=== PATIENT | female | born 1950 | race Caucasian/White ===

== ENCOUNTER 2016-10-26 06:41 | Emergency (ER) | payer BC, OTHER ==
[~2016-10-26] VITALS: Ht 152.4 cm; Wt 58.9 kg
[2016-10-26 06:45] VITALS: TEMP 36.7; Ht 152.4 cm; Wt 58.9 kg
[2016-10-26] MEDS ORDERED: DiphenhydrAMINE HCL 50 MG/ML VIAL IV STA ×2 (07:00→07:09)
[2016-10-26] MEDS ORDERED: SODIUM CHLORIDE 0.9% 1000ML 1,000 ML IV STA (07:00)
[2016-10-26] MEDS ORDERED: PROCHLORPERAZINE 5 MG/ML 2 ML VIAL IV STA ×2 (07:00→07:04)
--- NOTE | 2016-10-26 07:14 | EMERGENCY ROOM VISIT NOTE ---
History First contact with patient: 06:51 Chief Complaint: HEADACHE Stated Complaint: SEVERE HEADACHE History of Present Illness The patient is a 66 year old female who presents to the Emergency Room via private vehicle with complaints of "severe headache". The patient states that beginning earlier in the week she had periodic headaches. She states that they were diffuse in nature. She states that she has been seen here in the past for headaches secondary to dehydration. She states at that time she had diffuse bodyaches, of which are not present this time. She states that this past the headaches increased in severity, and they'll have been constant rated as a 10/10 and described as sharp in nature. She does not want to eat solid foods, and has been consuming no shakes and other soft substances. There is associated sweats. She states if she lays on one side makes it worse. She is tried aspirin without relief. She has had associated nausea. She denies any fevers, chills, abdominal pain. She denies any chest pain or shortness of breath. She denies any history of meningitis, speech troubles, or weakness. There is no history of stroke. Review of Systems A complete 10-point Review of Systems was discussed with the patient, with pertinent positives and negatives listed in the History of Present Illness. All remaining Review of Systems questions can be considered negative unless otherwise specified. Past Medical/Surgical History Medical Problems: (1) No Known Active Medical Problems Family History Hypertension, Stroke Social History Smoking Status: Current Every Day Smoker Alcohol Use: none Drug Use: none Marital Status: single Housing Status: lives alone Occupation Status: employed Current/Historical Medications Scheduled Doxycycline (Monohydrate) (Doxycycline), 100 MG PO BID Physical Exam Vital Signs Date Time Temp Pulse Resp B/P (MAP) Pulse Ox O2 Delivery O2 Flow Rate FiO2 10/26/16 10:57 76 16 136/76 96 10/26/16 10:37 76 16 136/76 96 Room Air 10/26/16 09:21 63 18 140/73 95 Room Air 10/26/16 08:25 69 10/26/16 07:51 95 Room Air 10/26/16 07:51 71 19 131/66 95 Room Air 10/26/16 06:45 36.7 80 18 124/78 95 Room Air Physical Exam VITAL SIGNS - Vital signs and nursing notes were reviewed. Stable. Afebrile. GENERAL -66-year-old female appearing her stated age who is in no acute distress. Communicates well with provider and answers questions appropriately. HEAD - Normocephalic, Atraumatic. No Olvera's Sign or Raccoon's Eyes. No depressed skull fractures palpable. EYES - PERRL with EOMI bilaterally. Sclera anicteric. Palpebral conjunctiva pink and moist with no injection noted. EARS - No deformities of external structures noted on gross examination bilaterally. No pain elicited with palpation of the tragus bilaterally. External auditory canals without discharge or otorrhea. Tympanic membranes pearly pinzon without retraction or bulging. NOSE - Midline and without cyanosis. No epistaxis or purulent drainage noted. Septum midline without deviation or septal hematoma noted. MOUTH/OROPHARYNX - Without perioral cyanosis. Buccal mucosa pink and moist and without leukoplakia. Tongue midline with equal elevation of palate bilaterally. No tonsillar hypertrophy, erythema, or exudates noted. Poor dentition noted. NECK - Neck with FROM. Supple to palpation. No lymphadenopathy noted. No nuchal rigidity. Patient is able to fully flex and extend her neck. LUNGS - Chest wall symmetric without accessory muscle use, intercostals retractions, or central cyanosis. Normal vesicular breath sounds CTA B/L. No wheezes, rales, or rhonchi appreciated. CARDIAC - RRR with S1/S2. No murmur, rubs, or gallops appreciated. EXTREMITIES - No pretibial edema present. She is neurovascularly intact in her extremities. +5/5 strength noted in UE/LE bilaterally. NEUROLOGIC - Cranial nerves II through XII grossly intact. Sensory intact to light touch throughout. PSYCH - A&Ox3 and cooperates fully with examiner. Pt is very pleasant and interacts well with examiner. Medical Decision & Procedures ER Provider Diagnostic Interpretation: HEAD WITHOUT CONTRAST (CT) CLINICAL HISTORY: 66 years-old Female with Worst headache of life. Symptoms are acute in nature. TECHNIQUE: Multiple axial CT images of the head were obtained without contrast. A dose lowering technique was utilized adhering to the principles of ALARA. CT DOSE: 844.62 mGy.cm COMPARISON: CT head 12/21/2014. FINDINGS: The patient was moving during the exam and a portion of the study was repeated. No acute intracranial hemorrhage, midline shift, mass, large territorial ischemia or abnormal extra-axial collection. There is mild to moderate cerebral and cerebellar atrophy. Ill-defined areas of low-attenuation are present within the periventricular white matter suggesting minimal chronic microvascular ischemic changes. Low-attenuation is also seen within the left posterior limb internal capsule suggesting white matter disease. The calvarium is intact. The right mastoid air cells are nearly completely opacified. There is a small left mastoid effusion. Fluid is present within the right middle ear cavity. Paranasal sinuses are generally clear. Right owen bullosa is noted. Soft tissues are unremarkable. IMPRESSION: 1. Limited study secondary to patient motion. Within the limitations of the study, no acute intracranial abnormality is identified. 2. Atrophy with minimal chronic microvascular ischemic changes. 3. Large right and trace left mastoid effusions with fluid also noted within the right middle ear cavity. The above report was generated using voice recognition software. It may contain grammatical, syntax or spelling errors. Electronically signed by: Sanya Maya M.D. 10/26/2016 8:02 AM Dictated Date/Time: 10/26/2016 7:58 AM Laboratory Results 10/26/16 07:20 Red Blood Count 4.27, Mean Corpuscular Volume 97.9, Mean Corpuscular Hemoglobin 34.2, Mean Corpuscular Hemoglobin Concent 34.9, Mean Platelet Volume 11.1, Neutrophils (%) (Auto) 62.3, Lymphocytes (%) (Auto) 29.5, Monocytes (%) (Auto) 7.1, Eosinophils (%) (Auto) 0.2, Basophils (%) (Auto) 0.2, Neutrophils # (Auto) 2.72, Lymphocytes # (Auto) 1.29, Monocytes # (Auto) 0.31, Eosinophils # (Auto) 0.01, Basophils # (Auto) 0.01 10/26/16 07:20 Test 10/26/16 07:15 10/26/16 07:20 Urine Color YELLOW Urine Appearance CLOUDY (CLEAR) Urine pH 5.0 (4.5-7.5) Urine Specific Nabb 1.029 (1.000-1.030) Urine Protein TRACE (NEG) Urine Glucose (UA) NEG (NEG) Urine Ketones 1+ (NEG) Urine Occult Blood 2+ (NEG) Urine Nitrite NEG (NEG) Urine Bilirubin NEG (NEG) Urine Urobilinogen NEG (NEG) Urine Leukocyte Esterase NEG (NEG) Urine WBC (Auto) 1-5 /hpf (0-5) Urine RBC (Auto) 5-10 /hpf (0-4) Urine Hyaline Casts (Auto) 1-5 /lpf (0-5) Urine Epithelial Cells (Auto) >30 /lpf (0-5) Urine Bacteria (Auto) NEG (NEG) White Blood Count 4.37 K/uL (4.8-10.8) Red Blood Count 4.27 M/uL (4.2-5.4) Hemoglobin 14.6 g/dL (12.0-16.0) Hematocrit 41.8 % (37-47) Mean Corpuscular Volume 97.9 fL (80-100) Mean Corpuscular Hemoglobin 34.2 pg (25-34) Mean Corpuscular Hemoglobin Concent 34.9 g/dl (32-36) Platelet Count 178 K/uL (130-400) Mean Platelet Volume 11.1 fL (7.4-10.4) Neutrophils (%) (Auto) 62.3 % Lymphocytes (%) (Auto) 29.5 % Monocytes (%) (Auto) 7.1 % Eosinophils (%) (Auto) 0.2 % Basophils (%) (Auto) 0.2 % Neutrophils # (Auto) 2.72 K/uL (1.4-6.5) Lymphocytes # (Auto) 1.29 K/uL (1.2-3.4) Monocytes # (Auto) 0.31 K/uL (0.11-0.59) Eosinophils # (Auto) 0.01 K/uL (0-0.5) Basophils # (Auto) 0.01 K/uL (0-0.2) RDW Standard Deviation 50.7 fL (36.4-46.3) RDW Coefficient of Variation 14.3 % (11.5-14.5) Immature Granulocyte % (Auto) 0.7 % Immature Granulocyte # (Auto) 0.03 K/uL (0.00-0.02) Prothrombin Time 10.9 SECONDS (9.0-12.0) Prothromb Time International Ratio 1.0 (0.9-1.1) Activated Partial Thromboplast Time 26.0 SECONDS (21.0-31.0) Partial Thromboplastin Ratio 1.0 Anion Gap 4.0 mmol/L (3-11) Est Creatinine Clear Calc Drug Dose 54.9 ml/min Estimated GFR () 87.0 Estimated GFR (Non- 75.1 BUN/Creatinine Ratio 16.6 (10-20) Calcium Level 8.5 mg/dl (8.5-10.1) Magnesium Level 2.1 mg/dl (1.8-2.4) Total Bilirubin 0.3 mg/dl (0.2-1) Aspartate Amino Transf (AST/SGOT) 27 U/L (15-37) Alanine Aminotransferase (ALT/SGPT) 16 U/L (12-78) Alkaline Phosphatase 66 U/L (45-117) Total Protein 7.1 gm/dl (6.4-8.2) Albumin 3.8 gm/dl (3.4-5.0) Globulin 3.3 gm/dl (2.5-4.0) Albumin/Globulin Ratio 1.2 (0.9-2) Thyroid Stimulating Hormone (TSH) 0.921 uIu/ml (0.300-4.500) Lyme Disease IgG Antibody POS (NEG) Medications Administered Medications (Trade) Dose Ordered Sig/Von Route Start Time Stop Time Status Last Admin Dose Admin Sodium Chloride 1,000 ml @ 999 mls/hr Q1H1M STAT IV 10/26/16 07:00 10/26/16 08:00 DC 10/26/16 07:28 999 MLS/HR Prochlorperazine Edisylate (Compazine Inj) 5 mg NOW STAT IV 10/26/16 07:04 10/26/16 07:05 DC 10/26/16 07:29 5 MG Diphenhydramine HCl (Benadryl Inj) 25 mg NOW STAT IV 10/26/16 07:09 10/26/16 07:10 DC 10/26/16 07:28 25 MG Ketorolac Tromethamine (Toradol Inj) 15 mg NOW STAT IV 10/26/16 07:57 10/26/16 07:58 DC 10/26/16 08:12 15 MG Medical Decision Patient was seen and evaluated as above. Previous visits were extensively reviewed. She presents to us today with a diffuse headache described as severe. She states she's been seen here in the past for such and believes it is secondary to dehydration, but notes this one is different. She denies any defined history of migraines. She has tried aspirin without relief. She was seen here a little over a year ago and treated with Toradol, Benadryl Compazine as well as fluids and narcotics. At this time I will begin with Benadryl Compazine and hold Toradol until her creatinine is identified. There is no emergent deficits appreciated on examination. No evidence of CVA on examination. The decision was made to obtain a CT scan of the patient's head secondary to the nature of her headache at this time, being different than her previous and severe. She was then reevaluated after return from CAT scan and medicated with fluids, Benadryl Compazine. The doses from Benadryl Compazine were decreased to 25mg and 5mg respectively. She then rated her pain as a 5-6/ 10. She was resting comfortably. CT scan results as above. Read by myself and the radiologist as well as the attending physician to reveal no acute hemorrhage, infarct. She was given Toradol for pain. She appears to be stable for discharge. No evidence of acute process. She was educated upon worrisome symptoms which to return, had questions to discharge, and was discharged home in good condition. Positive Lyme IgG and IgM. The bands are pending. At this time I will treat with a 7 day course of which she can refill 2. This is in case the cost is very high as the patient expressed concern. Ideally she'll be treated for 21 days, however if the bands, back and conclusive were negative then it can be stopped. In the evaluation and treatment of this patient, the following differential diagnoses were considered: Concussion, Contrecoup Injury, Brain Tumor, Depression, Encephalitis, Hypothyroidism, Meningitis, CVA, TIA, Migraine, Cluster Headache, Intracranial Abnormality, Intracranial Hemorrhage, Subdural Hematoma, Subarachnoid Hemorrhage, Hydrocephalus. [place] Drug Monitoring Program Search Results: patient reviewed within database, no issues identified Impression Primary Impression: Headache Additional Impression: Positive Lyme disease serology Departure Information Dispostion Home / Self-Care Condition GOOD Prescriptions Doxycycline (Monohydrate) (Doxycycline) 100 Mg Cap 100 MG PO BID for 7 Days, #14 TABS 2 Refills Prov: Marvin Resendiz PA-C 10/26/16 Referrals Roland Waller M.D. (PCP) Forms HOME CARE DOCUMENTATION FORM, IMPORTANT VISIT INFORMATION Patient Instructions My [facility] Additional Instructions You have been treated in the Emergency Department for a Headache. You have received pain medicine in the emergency department which impairs your ability to operate a vehicle. It is illegal for you to drive after receiving these medicines. You have been prescribed Doxycycline to be taken as prescribed. This is an antibiotic. All antibiotics have the potential to cause diarrhea. Stop this medication and contact a medical provider if you were to develop any significant adverse side effects including: wheezing, shortness of breath, passing out, vomiting, or a diffuse rash. Always take antibiotics as directed and COMPLETE the ENTIRE course regardless of the improvement of your symptoms. Protect yourself with sunscreen while on this antibiotic as it increases your skin's sensitivity to the light and cause bad sunburns. In addition, you should be sure to take this pill after eating. Make sure the pill is completely swallowed as this medication can cause irritation to the lining of the esophagus. Do NOT drink milk or eat anything with large amounts of Calcium in them 1 hour prior to taking this medication as this will decrease the effectiveness of the medication. THIS IS FOR THE POSITIVE LYME TESTING. If you do not hear from us please refill the medications so that it is a total of 21 days. Please call your family doctor to schedule follow-up. For pain control, you can use the following [id number] medicines: - Regular strength (325mg/tab) Tylenol (acetaminophen) 2 tabs every 4-6 hours as needed. Do not exceed 12 tablets in a 24 hour period. Avoid taking more than 3 grams (3000 mg) of Tylenol per day. This includes any other sources of acetaminophen you may take on a regular basis. - Regular strength (200 mg/tab) Advil (ibuprofen) 1-2 tabs every 4-6 hours as needed. Do not exceed a dose of 3200 mg per day. You should relax in a quiet, dark place for the rest of the day. Avoid any possible triggers including: cigarette smoke, caffeine, nicotine, chocolate, wine, beer, loud noises or music, or bright lights. You should schedule a follow-up appointment in 2-3 days with your Primary Care Provider or established Neurologist for further evaluation and treatment of your Headache. Return to the Emergency Department if your current symptoms worsen despite treatment course outlined above, or if you develop any of the following symptoms : intractable pain despite aforementioned treatment course, visual disturbances , loss of vision, unilateral weakness or facial drooping, slurring of speech, loss of coordination, or loss of consciousness. Please return to the emergency department with any new/concerning symptoms. Problem Qualifiers
[2016-10-26 07:34] LABS: BASO % 0.2 %; BASO ABS # 0.01 K/uL (0-0.2); COMPLETE YES; EOS % 0.2 %; HEMATOCRIT 41.8 % (37-47); IG% 0.7 %; LYMPH % 29.5 %; LYMPH ABS # 1.29 K/uL (1.2-3.4); MEAN CELL VOLUME 97.9 fL (80-100); MEAN CORPUSCULAR HEMOGLOBIN 34.2 pg (25-34); MEAN CORPUSCULAR HGB CONC 34.9 g/dl (32-36); MEAN PLATELET VOLUME 11.1 fL (7.4-10.4); MONO % 7.1 %; NEUT % 62.3 %; PLATELET COUNT 178 K/uL (130-400); RED BLOOD COUNT 4.27 M/uL (4.2-5.4); WHITE BLOOD COUNT 4.37 K/uL (4.8-10.8)
[2016-10-26 07:38] LABS: URINE APPEARANCE CLOUDY (CLEAR); URINE BILIRUBIN NEG (NEG); URINE COLOR YELLOW; URINE EPITHELIAL CELL AUTO >30 /lpf (0-5); URINE NITRITE NEG (NEG); URINE SPECIFIC GRAVITY 1.029 (1.000-1.030); UROBILINOGEN NEG (NEG); ZZUR CULT IF INDIC CLEAN CATCH NO
[2016-10-26 07:39] LABS: MANUAL MICROSCOPIC REQUIRED? NO; REVIEW REQ? NO
[2016-10-26 07:44] LABS: PROTHROMBIN TIME (PATIENT) 10.9 SECONDS (9.0-12.0)
[2016-10-26 07:46] LABS: BUN/CREATININE RATIO 16.6 (10-20); CALCIUM 8.5 mg/dl (8.5-10.1); CREATININE 0.82 mg/dl (0.60-1.20); MAGNESIUM 2.1 mg/dl (1.8-2.4); POTASSIUM 3.5 mmol/L (3.5-5.1)
[2016-10-26 07:51] VITALS: O2SAT 95
[2016-10-26 07:57] LABS: ALB/GLOB RATIO 1.2 (0.9-2); THYROID STIMULATING HORMONE 0.921 uIu/ml (0.300-4.500)
[2016-10-26] MEDS ORDERED: KETOROLAC TROMETHAMINE 15 MG/ML VIAL IV STA (07:57)
--- NOTE | 2016-10-26 08:03 | DIAGNOSTIC IMAGING REPORT ---
HEAD WITHOUT CONTRAST (CT) CLINICAL HISTORY: 66 years-old Female with Worst headache of life. Symptoms are acute in nature. TECHNIQUE: Multiple axial CT images of the head were obtained without contrast. A dose lowering technique was utilized adhering to the principles of ALARA. CT DOSE: 844.62 mGy.cm COMPARISON: CT head 12/21/2014. FINDINGS: The patient was moving during the exam and a portion of the study was repeated. No acute intracranial hemorrhage, midline shift, mass, large territorial ischemia or abnormal extra-axial collection. There is mild to moderate cerebral and cerebellar atrophy. Ill-defined areas of low-attenuation are present within the periventricular white matter suggesting minimal chronic microvascular ischemic changes. Low-attenuation is also seen within the left posterior limb internal capsule suggesting white matter disease. The calvarium is intact. The right mastoid air cells are nearly completely opacified. There is a small left mastoid effusion. Fluid is present within the right middle ear cavity. Paranasal sinuses are generally clear. Right owen bullosa is noted. Soft tissues are unremarkable. IMPRESSION: 1. Limited study secondary to patient motion. Within the limitations of the study, no acute intracranial abnormality is identified. 2. Atrophy with minimal chronic microvascular ischemic changes. 3. Large right and trace left mastoid effusions with fluid also noted within the right middle ear cavity. The above report was generated using voice recognition software. It may contain grammatical, syntax or spelling errors. Electronically signed by: Sanya Maya M.D. 10/26/2016 8:02 AM Dictated Date/Time: 10/26/2016 7:58 AM
--- NOTE | 2016-10-26 08:18 | EMERGENCY ROOM VISIT NOTE ---
ED Visit Note First contact with patient: 06:51 66-year-old female with headache was fully evaluated by Marvin Resendiz PA-C. Please see his note. I also independently evaluated the patient. Multiple labs and imaging were performed. The patient was felt stable to return home.
[2016-10-26 08:42] LABS: LYME DISEASE AB IGG POS (NEG); LYME DISEASE AB IGM POS (NEG)
[2016-10-26] MEDS ORDERED: DOXY-300 PO (10:48)
[2016-10-26 10:57] VITALS: BP 136/76; PULSE 76; O2SAT 96
[2016-10-29 20:01] LABS: 18KDIGG BAND REACTIVE (NONREACTIVE); 23KDIGG BAND REACTIVE (NONREACTIVE); 23KDIGM BAND REACTIVE (NONREACTIVE); 28KDIGG BAND REACTIVE (NONREACTIVE); 30KDIGG BAND REACTIVE (NONREACTIVE); 39KDIGG BAND REACTIVE (NONREACTIVE); 39KDIGM BAND NONREACTIVE (NONREACTIVE); 41KDIGG BAND REACTIVE (NONREACTIVE); 41KDIGM BAND REACTIVE (NONREACTIVE); 45KDIGG BAND REACTIVE (NONREACTIVE); 58KDIGG BAND REACTIVE (NONREACTIVE); 66KDIGG BAND REACTIVE (NONREACTIVE); 93KDIGG BAND REACTIVE (NONREACTIVE)
--- NOTE | 2016-11-02 18:58 | Pharmacy Progress Note ---
ED Pharmacist Culture FollowUp Date of Service: Nov 02, 2016. Patient was sent home with a prescription for doxycycline, which should cover the Lyme identified in patient's serology. Called patient and informed of need to continue full 21 day course. Patient acknowledged understanding.
== END 2016-10-26 10:57 | disposition home or self-care (01) ==
LOC: C.EDB 06:42 → C.EDA 10:57
DX: R51 Headache (principal); A69.20 Lyme disease, unspecified; Z82.49 Family history of ischemic heart disease and other diseases of the circulatory system; Z82.3 Family history of stroke; F17.210 Nicotine dependence, cigarettes, uncomplicated

== ENCOUNTER 2017-03-09 09:26 | Emergency (ER) | payer OTHER ==
[~2017-03-09] VITALS: Ht 152.4 cm; Wt 59.1 kg
[~2017-03-09 09:26] MED LIST: DOXY-300 PO
[2017-03-09 09:29] VITALS: Ht 152.4 cm; Wt 59.1 kg
[2017-03-09] MEDS ORDERED: ONDANSETRON INJ 2 MG/ML 2 ML VIAL IV STA (09:42)
[2017-03-09] MEDS ORDERED: DEXAMETHASONE INJ 10 MG in SYRINGE 0 ML IV STA (09:42)
[2017-03-09] MEDS ORDERED: MoRPHine SULFATE 4 MG/ML 1 ML CARP\\VIAL IV STA (09:42)
[2017-03-09] MEDS ORDERED: KETOROLAC TROMETHAMINE 30 MG/ML VIAL IV STA (09:42)
[2017-03-09] MEDS ORDERED: ACETAMINOPHEN 500 MG TAB PO STA (09:42)
[2017-03-09] MEDS ORDERED: DEXAMETHASONE **PF** INJ 10 MG/ML VIAL ONE (10:04)
--- NOTE | 2017-03-09 10:04 | EMERGENCY ROOM VISIT NOTE ---
History Report prepared by Jose: Shreyas Gresham Under the Supervision of: Dr. Yair Earl M.D. First contact with patient: 09:33 Chief Complaint: BACK PAIN Stated Complaint: BACK PAIN History of Present Illness The patient is a 66 year old white woman without any past medical history who presents to the ED with a cc of sharp ower back pain beginning four months ago. Negative falls, trauma, fevers, weakness, numbness, unexplained weight loss, abnormal urinary symptoms, or bowel/bladder incontinence. A couple months ago, the patient pulled a muscle in her back while picking up a six pack. After using Aspirin and heat intermittently, the pain improved until recently. She notes yesterday her pain was radiating up her spine, but it is not today. Her pain worsens with movement. She does not drink alcohol or use illicit drugs. She took an Aspirin this morning. She smokes cigarettes regularly. Source of History: patient Onset: four months ago Position: back (lower) Symptom Intensity: moderate Quality: sharp Timing: worsening Modifying Factors (Worsening): movement Associated Symptoms: No fevers, No weakness, No numbness Note: She denies any falls or trauma. Review of Systems See HPI for pertinent positives and negatives. A total of ten systems were reviewed and were otherwise negative. Past Medical & Surgical Medical Problems: (1) No Known Active Medical Problems Family History No pertinent family history Social History Smoking Status: Current Every Day Smoker Alcohol Use: none Drug Use: none Marital Status: single Housing Status: lives alone Occupation Status: employed Current/Historical Medications Scheduled Methylprednisolone (Medrol Dosepak), 0 PO DAILY Tramadol Hcl (Ultram), 50 MG PO Q8H Allergies Coded Allergies: No Known Allergies (Verified , 03/09/17) Physical Exam Vital Signs Date Time Temp Pulse Resp B/P (MAP) Pulse Ox O2 Delivery O2 Flow Rate FiO2 03/09/17 12:11 36.7 81 19 138/85 96 03/09/17 11:00 36.4 103 22 132/88 99 Room Air 03/09/17 09:45 36.4 103 22 136/87 99 Room Air 03/09/17 09:29 36.4 104 22 132/87 99 Room Air Physical Exam GENERAL: Awake, alert, appears older than her stated age, NAD HENT: Normocephalic, atraumatic. EYES: Normal conjunctiva. Sclera non-icteric. NECK: Supple. No nuchal rigidity. FROM. RESPIRATORY: CTAB, no rhonchi, wheezing, crackles CARDIAC: RRR, no MRG ABDOMEN: Soft, NTND, BS+ MSK: No chest wall TTP, no LE edema. Left perispinal TTP, no midline TTP, no step offs, no skin changes to the lower back. Negative straight leg raise b/l. No pain with external rotation. No saddle anesthesia. NEURO: GCS 15, CN 2-12 intact, moves all 4s on command. 5/5 strength b/l with straight leg raise. No sensory deficits. SKIN: No rash or jaundice noted. Medical Decision & Procedures ER Provider Diagnostic Interpretation: Radiology results as stated below per my review and radiologist interpretation: LUMBAR SPINE 5 VIEWS CLINICAL HISTORY: Back pain. FINDINGS: Five views of the lumbar spine are obtained. No prior studies are available for comparison at the time of dictation. The skeletal structures are osteopenic. There is a mild and age-indeterminant superior endplate compression deformity of L1. Vertebral body height is otherwise maintained throughout the lumbar spine. Minimal retrolisthesis is seen at L2-L3. Alignment is otherwise preserved. The transverse and spinous processes are intact as visualized. There is no evidence of spondylolysis. Small anterior osteophytes are seen throughout. Moderate facet arthropathy is noted in the lower lumbar region. There is partial sacralization of L5. Moderate disc space narrowing is seen at L2-L3 with associated endplate sclerosis. Mild disc space narrowing is seen at the remaining lumbar levels. The visualized bony pelvis appears intact. Moderate colonic fecal retention is observed. No bowel obstruction is identified. There is atherosclerotic calcification of the abdominal aorta. Small phleboliths are seen in the pelvis. IMPRESSION: 1. There is a mild and age-indeterminant superior endplate compression deformity of L1. Correlate for point tenderness at this level. 2. No additional acute bony abnormality is suspected. 3. Osteopenia and spondylotic change as above. 4. Moderate constipation. Dictated: 03/09/2017 11:01 AM Transcribed: 03/09/2017 11:27 AM [email or web address] Electronically signed by: Isidro Hassan M.D. 03/09/2017 11:35 AM Dictated Date/Time: 03/09/2017 11:01 AM Medications Administered Medications (Trade) Dose Ordered Sig/Ovn Route Start Time Stop Time Status Last Admin Dose Admin Ondansetron HCl (Zofran Inj) 4 mg NOW STAT IV 03/09/17 09:42 03/09/17 09:45 DC 03/09/17 09:59 4 MG Acetaminophen (Tylenol Tab) 1,000 mg NOW STAT PO 03/09/17 09:42 03/09/17 09:45 DC 03/09/17 10:00 1,000 MG Ketorolac Tromethamine (Toradol Inj) 30 mg NOW STAT IV 03/09/17 09:42 03/09/17 09:45 DC 03/09/17 09:59 30 MG Morphine Sulfate (MoRPHine SULFATE INJ) 4 mg NOW STAT IV 03/09/17 09:42 03/09/17 09:45 DC 03/09/17 09:59 4 MG Dexamethasone Sodium Phosphate (Dexamethasone Inj Pf) 10 mg STK-MED ONCE .ROUTE 03/09/17 10:04 03/09/17 10:05 DC 03/09/17 10:06 10 MG ED Course 0933: The patient was evaluated in room B3. A complete history and physical exam was performed. 1205: I reevaluated the patient. Discussed results and discharge instructions: She verbalized understanding and agreement. The patient is ready for discharge. Medical Decision The patient is a 66 year old white woman without any past medical history who presents to the ED with a cc of lower back pain beginning four months ago. Negative falls, trauma, fevers, weakness, numbness, unexplained weight loss, abnormal urinary symptoms, or bowel/bladder incontinence. Differential diagnosis: Etiologies such as musculoskeletal, disc herniation, fracture, aortic disease, metastatic disease, cord compression, discitis, infection, renal colic, gastrointestinal, acute exacerbation of chronic back pain, sciatica, cauda equina, as well as others were entertained. Patient was seen and evaluated the bedside. Patient has had some chronic back pain which she believed was precipitated from overreaching approximately 4 months prior. Patient denies any bowel or bladder incontinence or retention or saddle anesthesia. Patient otherwise is fairly well-appearing. Patient has no neurologic deficits. Patient has no high risk red flag signs such as fever, chills, IV drug abuse, or weight loss. Patient was informed of the findings and told to continue pain medication as needed and to follow-up with her PCP for further management which may include light exercising, PT, or steroid injections. Patient was also counseled on smoking cessation. Patient was deemed suitable for admission follow-up and treatment. Patient was given strict follow-up, discharge, and return precautions. All questions were answered. Patient was deemed suitable for outpatient follow-up at this time. Patient agreed with the plan of care and was safely discharged home. Medication Reconcilliation Current Medication List: was personally reviewed by me Blood Pressure Screening Patient's blood pressure: Normal blood pressure Blood pressure disposition: Did not require urgent referral Impression Primary Impression: Compression fracture of L1 lumbar vertebra Additional Impressions: Back pain Encounter for smoking cessation counseling Scribe Attestation The scribe's documentation has been prepared under my direction and personally reviewed by me in its entirety. I confirm that the note above accurately reflects all work, treatment, procedures, and medical decision making performed by me. Departure Information Dispostion Home / Self-Care Prescriptions Tramadol Hcl (ULTRAM) 50 Mg Tab 50 MG PO Q8H, #12 TAB PRN PAIN Prov: Yair Earl M.D. 03/09/17 Methylprednisolone (MEDROL DOSEPAK) 4 Mg Bautista 0 PO DAILY, #1 PKT Prov: Yair Earl M.D. 03/09/17 Referrals Roland Waller M.D. (PCP) Forms HOME CARE DOCUMENTATION FORM, IMPORTANT VISIT INFORMATION Patient Instructions Back Pain Relieve, ED Fx Comp Vertebral, My [facility] Additional Instructions Please return to the emergency department if you have worsening or recurrent symptoms not amenable to at-home treatment. Please call for a follow-up appointment with her primary care physician. Please take your medications as prescribed. If you have other concerns and/or complaints please feel free to also call your primary care physician's office or return the ED for further evaluation, management, and treatment. Please consider smoking cessation. Please consider light stretching and follow- up with her primary care for your endplate compression fracture. Consider follow-up with an orthopedist if he still had persistent pain. Please take your steroids preferably in the morning and with food. It may cause some mild upset stomach. You may also take a Pepcid or Zantac to help with this discomfort. You received narcotic or benzodiazepine medication while in the emergency room today. This is an addictive medication that may cause drowsiness as well as constipation. Do not drive, operate heavy machinery, or drink alcohol under the influence of this medication. You may take 600 mg Ibuprofen every 6 hours as needed for pain with food for no more than 2 consecutive days. You may take Tylenol 1000 mg every 6 hours as needed for pain. You may take motrin and tylenol separately or at the same time. Take your medications as prescribed. You have been examined and treated today on an emergency basis only. This is not a substitute for, or an effort to provide, complete comprehensive medical care. It is impossible to recognize and treat all injuries or illnesses in a single emergency department visit. It is therefore important that you follow up closely with [facility], your PCP, and/or your specialist(s). Call as soon as possible for an appointment. Thank you for your time and consideration. I look forward to speaking with you again soon. Please don't hesitate to call us if you have any questions. Problem Qualifiers Primary Impression: Compression fracture of L1 lumbar vertebra Encounter type: initial encounter Fracture type: closed Qualified Codes: S32.010A - Wedge compression fracture of first lumbar vertebra, initial encounter for closed fracture Additional Impressions: Back pain Back pain location: low back pain Chronicity: chronic Back pain laterality : left Sciatica presence: without sciatica Qualified Codes: M54.5 - Low back pain; G89.29 - Other chronic pain
--- NOTE | 2017-03-09 11:28 | DIAGNOSTIC IMAGING REPORT ---
LUMBAR SPINE 5 VIEWS CLINICAL HISTORY: Back pain. FINDINGS: Five views of the lumbar spine are obtained. No prior studies are available for comparison at the time of dictation. The skeletal structures are osteopenic. There is a mild and age-indeterminant superior endplate compression deformity of L1. Vertebral body height is otherwise maintained throughout the lumbar spine. Minimal retrolisthesis is seen at L2-L3. Alignment is otherwise preserved. The transverse and spinous processes are intact as visualized. There is no evidence of spondylolysis. Small anterior osteophytes are seen throughout. Moderate facet arthropathy is noted in the lower lumbar region. There is partial sacralization of L5. Moderate disc space narrowing is seen at L2-L3 with associated endplate sclerosis. Mild disc space narrowing is seen at the remaining lumbar levels. The visualized bony pelvis appears intact. Moderate colonic fecal retention is observed. No bowel obstruction is identified. There is atherosclerotic calcification of the abdominal aorta. Small phleboliths are seen in the pelvis. IMPRESSION: 1. There is a mild and age-indeterminant superior endplate compression deformity of L1. Correlate for point tenderness at this level. 2. No additional acute bony abnormality is suspected. 3. Osteopenia and spondylotic change as above. 4. Moderate constipation. Dictated: 03/09/2017 11:01 AM Transcribed: 03/09/2017 11:27 AM [email or web address] Electronically signed by: Isidro Hassan M.D. 03/09/2017 11:35 AM Dictated Date/Time: 03/09/2017 11:01 AM
[2017-03-09] MEDS ORDERED: TRAM-453 PO (11:40)
[2017-03-09] MEDS ORDERED: METH4PAK PO (11:40)
[2017-03-09 12:11] VITALS: BP 138/85; PULSE 81; TEMP 36.7; O2SAT 96
== END 2017-03-09 12:12 | disposition home or self-care (01) ==
LOC: C.EDB 09:27
DX: S32.010A Wedge compression fracture of first lumbar vertebra, initial encounter for closed fracture (principal); Z71.6 Tobacco abuse counseling; F17.210 Nicotine dependence, cigarettes, uncomplicated; X58.XXXA Exposure to other specified factors, initial encounter

== ENCOUNTER 2017-04-14 11:08 | Emergency (ER) | payer OTHER ==
[~2017-04-14] VITALS: Ht 152.4 cm; Wt 56.4 kg
[2017-04-14 11:21] VITALS: TEMP 36.6; Ht 152.4 cm; Wt 56.4 kg
[2017-04-14] MEDS ORDERED: TRAM-10 PO (12:02)
--- NOTE | 2017-04-14 12:07 | DIAGNOSTIC IMAGING REPORT ---
L RIBS UNILATERAL WITH PA CHEST CLINICAL HISTORY: L anterior rib pain with movement pain COMPARISON STUDY: None FINDINGS: Negative left ribs. Cortical margins are intact. The lungs are clear. No evidence of pneumothorax or infiltrate. IMPRESSION: Negative left ribs. Negative chest. The above report was generated using voice recognition software. It may contain grammatical, syntax or spelling errors. Electronically signed by: Ethan Osuna M.D. 04/14/2017 12:06 PM Dictated Date/Time: 04/14/2017 12:02 PM
[2017-04-14 12:58] VITALS: BP 143/84; PULSE 95; O2SAT 97
--- NOTE | 2017-04-14 17:03 | EMERGENCY ROOM VISIT NOTE ---
ED Visit Note First contact with patient: 11:31 Chief Complaint: Left-sided rib pain. History of Present Illness: Ms. Rowell is a 66-year-old white female who ambulates into the ED complaining of left anterior rib pain. Patient reports her pain started approximately 3 weeks ago; she cannot identify the cause. She does report approximately 1 month ago she had a compression lumbar fracture from nontraumatic unknown causes. Patient reports for the last 3 weeks whenever she twists at the waist she has a sharp pain over the anterior left ribs under her breast. When she is having her pain she rates at 8/10. The pain is nonradiating. The pain subsides when she is not twisting at the waist. She has prescribed tramadol and feels that is helping her discomfort. She denies any associated symptoms including fevers , chills, sweats, skin eruptions, skin color changes, upper respiratory tract symptoms, cough, wheezing, shortness of breath, wheezing, previous clots, claudication, cramping, recent surgery/inactivity/extended travel, abdominal pain, nausea, vomiting. Review of Systems: As noted above in history of present illness. 8 body systems were reviewed and found to be negative as noted above. Past Medical History: As previously noted. Current Medications: As previously noted Allergies to Medications: Patient denies. Social History: Patient is not employed; she feels safe in her home environment ; she admits to tobacco use and denies alcohol use. Physical Examination: Vital Signs: Date Time Temp Pulse Resp B/P (MAP) Pulse Ox O2 Delivery O2 Flow Rate FiO2 04/14/17 12:58 95 18 143/84 97 04/14/17 11:21 36.6 115 20 150/89 95 Room Air GENERAL: 66-year-old female in no acute distress distress, nontoxic-appearing, afebrile and hemodynamically stable. NEUROLOGICAL: Awake, alert and oriented to person, place and time. Answering questions appropriately and following commands. Normal gait. SKIN: Warm, dry and pink. No soft tissue eruptions or trauma noted. HEENT: Atraumatic and normocephalic. BACK: No tenderness over the bony cervical and thoracic spine. No CVA tenderness. THORAX: Lungs sounds are clear to auscultation and equal bilaterally with symmetrical chest wall. No wheezing, rales or rhonchi. Minimal tenderness over the left anterior ribs under her breast without bony deformity, bony crepitus, swelling or ecchymosis. HEART: Regular rate and rhythm. No gallops, rubs or murmurs are appreciated. ABDOMEN: Flat, soft and nontender. Positive bowel sounds in all quadrants. No guarding, rigidity or organomegaly. EXTREMITIES: Moves all extremities well on command and with purpose. All distal neurovascular statuses are intact and equal bilaterally. No calf tenderness or cords. ED Course: Patient is assessed as noted above. Patient's medication list was reviewed. PA Chest and Rib Series: Read by myself and the radiologist shows no acute infiltrates, effusions or pneumothorax. Normal heart silhouette and bony anatomy. EKG: Was read by myself and reviewed with Dr. Munroe; shows normal sinus rhythm with a ventricular rate of 88 bpm. Normal axis, intervals and complexes. No acute ST changes indicating ischemia, injury or infarction. Patient was reassessed multiple times during her stay in the emergency department. While in the emergency department patient requested she could take 1 of her tramadol tablets and I agreed. Patient's case was reviewed with Dr. Munroe; we agreed on diagnostic approach, treatment, disposition and plan. Patient was educated about today's findings and instructed on her treatment plan ; she verbalized understanding and agreement with this plan. Clinical Impression: Left-sided rib pain. Decision-Making: Initially my differential diagnosis I considered pneumonia, rib fracture, rib contusion, herpes zoster, pulmonary embolism, pneumothorax and other causes. Disposition: Patient discharged to home in stable condition; prior to departure she was reassessed and subjectively reported she was feeling much better. Plan: Patient was encouraged to take her tramadol as prescribed. Patient was encouraged to use ice or heat as we discussed. Patient was encouraged to try to refrain from twisting at the waist and moving the back as a whole. Patient was encouraged to follow-up with her PCP for recheck if no better in 3- 4 days. Patient was encouraged to return to the ED for worsening/uncontrolled pain, skin swelling/redness, fevers, shortness of breath, coughing up blood or any new /concerning symptoms.
--- NOTE | 2017-04-14 17:14 | EMERGENCY ROOM VISIT NOTE ---
ED Visit Note First contact with patient: 11:31 The patient was seen and examined with Theo Jacobo. I agree with the history, physical and findings. EKG showed sinus rhythm with a rate of 88. NH QRS and QTc intervals within normal limits. No ST segment elevation or ST segment depression. No ischemic changes no ectopy. EKG interpreted by me. Please see the note for disposition and details.
== END 2017-04-14 12:59 | disposition home or self-care (01) ==
LOC: C.EDB 11:11 → C.EDD 12:59
DX: R07.81 Pleurodynia (principal); Z72.0 Tobacco use